=== PATIENT | male | born 1965 | race Caucasian/White ===

== ENCOUNTER 2018-07-29 09:45 | Emergency (ER) | payer OTHER ==
[~2018-07-29] VITALS: Ht 167.6 cm; Wt 109.3 kg
[2018-07-29 10:12] VITALS: Ht 167.6 cm; Wt 109.3 kg
[2018-07-29 12:45] VITALS: BP 144/91
== END 2018-07-29 12:54 | disposition home or self-care (01) ==
LOC: ED 09:45
DX: J40 Bronchitis, not specified as acute or chronic (principal)